=== PATIENT | male | born 1980 | race Caucasian/White ===

== ENCOUNTER 2019-02-14 19:08 | Inpatient (IN) | payer MEDICAID, OTHER ==
[~2019-02-14] VITALS: Ht 166.6 cm; Wt 73.7 kg
--- NOTE | 2019-02-14 19:20 | NUR ---
PT JAIR FROM [facility] C/O RUQ PAIN X4 DAYS. +NAUSEA, +VOMITTING, +BLACK STOOL, -FEVER. PT AOX4. PT ON MONITOR IN BED 3. WILL CONTINUE TO MONITOR.
--- NOTE | 2019-02-14 19:50 | NUR ---
BLOOD DRAWN AND GIVEN TO LAB
[2019-02-14] MEDS ORDERED: PANTOPRAZOLE 40 MG VIAL ONE (19:54)
[2019-02-14] MEDS ORDERED: ONDANSETRON HCL/PF 4 MG/2 ML VIAL ONE (19:54)
[2019-02-14 19:58] LABS: BASOPHILS % (AUTO) 0.8 % (0.0-2.0); EOSINOPHILS % (AUTO) 1.3 % (0.0-6.0); HEMATOCRIT 32 % (39-51); HEMOGLOBIN 9.9 g/dL (13.5-17.5); LYMPHOCYTES # (AUTO) 1.4 /CMM (0.8-4.8); LYMPHOCYTES % (AUTO) 32.3 % (20.0-44.0); MEAN CORPUSCULAR HGB CONC 31 g/dl (31.0-36.0); MEAN CORPUSCULAR VOLUME 70 fL (80-96); MONOCYTES # (AUTO) 0.4 /CMM (0.1-1.30); MONOCYTES % (AUTO) 9.3 % (2.0-12.0); NEUTROPHILS # (AUTO) 2.5 /CMM (1.8-8.9); NEUTROPHILS % (AUTO) 56.3 % (43.0-81.0); PLATELET COUNT (AUTO) 275 /CMM (150-450); RED BLOOD CELL COUNT(AUTO) 4.55 MIL/uL (4.5-6.0); WHITE BLOOD COUNT (AUTO) 4.4 K/uL (4.3-11.0)
[2019-02-14] MEDS ORDERED: ONDANSETRON HCL/PF 4 MG/2 ML VIAL IVP ONE (20:00)
[2019-02-14] MEDS ORDERED: IV NS 0.9% 1,000 ML BAG IV ONE (20:00)
[2019-02-14] MEDS ORDERED: PANTOPRAZOLE 40 MG VIAL IV ONE (20:00)
--- NOTE | 2019-02-14 20:00 | NUR ---
BLOOD OCCULT SAMPLE COLLECTED BY XIAO WEINSTEIN AND SENT TO LAB
[2019-02-14 20:07] LABS: OCCULT BLOOD STOOL POSITIVE (NEGATIVE)
[2019-02-14 20:07] LABS: CALCIUM, SERUM 9.1 mg/dL (8.5-10.1); POTASSIUM 4.6 mmol/L (3.5-5.1)
[2019-02-14 20:10] LABS: ALBUMIN 3.5 g/dL (3.4-5.0); BILIRUBIN,DIRECT 0.1 mg/dL (0.0-0.2); BILIRUBIN,TOTAL 0.2 mg/dL (0.2-1.0); TOTAL PROTEIN, SERUM 6.9 g/dL (6.4-8.2)
--- NOTE | 2019-02-14 20:58 | NUR ---
CALLED [facility], PAGED DR SUAREZ
--- NOTE | 2019-02-14 21:19 | NUR ---
CALLED NURSING SUP FOR TELE BED
--- NOTE | 2019-02-14 22:13 | NUR ---
GAVE REPORT TO SOURAV TAI FOR RICARDO
[2019-02-14] MEDS ORDERED: MORPHINE SULFATE INJ 2 MG/ML DISP.SYRIN IV PRN (22:30)
[2019-02-14] MEDS ORDERED: ONDANSETRON HCL/PF 4 MG/2 ML VIAL IVP PRN (22:30)
[2019-02-14] MEDS ORDERED: ACETAMINOPHEN 650 MG/SUPP.RECT RC PRN (22:30)
[2019-02-14] MEDS ORDERED: IV D5/ 0.9% NACL 1,000 ML IV PRN (22:30)
--- NOTE | 2019-02-14 22:41 | NUR ---
TELE/RN NOTES RECEIVED PT. FROM ER VIA [facility]. PT. IS AWAKE, ALERT AND ORIENTED X4. BREATHING EVEN AND UNLABORED ON ROOM AIR. NO SOB, RESPIRATORY DISTRESS OR COMPLAINTS OF PAIN NOTED AT THIS TIME. ORIENTED PT. TO ROOM. PT. WITH RIGHT AC 18 GAUGE IV SALINE LOCK PRESENT, PATENT AND INTACT. PLACED EXTERNAL CERTIFIED CORPORATE TRAVEL EXECUTIVE ON PT. CURRENT RHYTHM = SINUS RHYTHM HR 63. BED LOCKED AND IN LOWEST POSITION, SIDE RAILS UP X2, CALL LIGHT WITHIN REACH, WILL CONTINUE TO MONITOR.
--- NOTE | 2019-02-14 23:18 | NUR ---
MS/RN NOTES SPOKE WITH [facility] BUS PERSON DISHWASHER DR. SUAREZ AND NOTIFIED HIM PT. IS REQUESTING ICE CHIPS. PER DR. SUAREZ OKAY FOR PT. TO HAVE ICE CHIPS. WILL CARRY OUT ORDER. WILL CONTINUE TO MONITOR.
[2019-02-14 23:59] VITALS: BP 116/70
[2019-02-15] MEDS: PANTOPRAZOLE 40 MG VIAL IV SCH ×2 (00:21→11:09)
[2019-02-15 06:16] LABS: BASOPHILS % (AUTO) 0.8 % (0.0-2.0); HEMATOCRIT 30 % (39-51); HEMOGLOBIN 9.1 g/dL (13.5-17.5); LYMPHOCYTES # (AUTO) 1.3 /CMM (0.8-4.8); LYMPHOCYTES % (AUTO) 36.8 % (20.0-44.0); MEAN CORPUSCULAR HGB CONC 31 g/dl (31.0-36.0); MEAN CORPUSCULAR VOLUME 71 fL (80-96); MONOCYTES # (AUTO) 0.3 /CMM (0.1-1.30); MONOCYTES % (AUTO) 8.9 % (2.0-12.0); NEUTROPHILS # (AUTO) 1.9 /CMM (1.8-8.9); NEUTROPHILS % (AUTO) 52.5 % (43.0-81.0); PLATELET COUNT (AUTO) 237 /CMM (150-450); WHITE BLOOD COUNT (AUTO) 3.6 K/uL (4.3-11.0)
[2019-02-15 06:31] LABS: BILIRUBIN,TOTAL 0.2 mg/dL (0.2-1.0); CALCIUM, SERUM 8.2 mg/dL (8.5-10.1); POTASSIUM 4.8 mmol/L (3.5-5.1)
--- NOTE | 2019-02-15 06:50 | NUR ---
TELE/RN NOTES PT. IS LYING IN BED RESTING. BREATHING EVEN AND UNLABORED ON ROOM AIR. NO SOB, RESPIRATORY DISTRESS OR COMPLAINTS OF PAIN NOTED AT THIS TIME. PT. WITH EXTERNAL MANAGER TERMINAL PRESENT AND INTACT. CURRENT RHYTHM = SINUS RHYTHM HR 68. PT. WITH RIGHT AC 18 GAUGE PERIPHERAL IV PRESENT, PATENT AND INTACT ADMINISTERING TO PT. D5NS @ 70MLS/HR. ALL PT. NEEDS MET. BED LOCKED AND IN LOWEST POSITION, SIDE RAILS UP X2, CALL LIGHT WITHIN REACH, WILL ENDORSE TO DAYSHIFT NURSE FOR CONTINUITY OF CARE.
[2019-02-15] MEDS ORDERED: CLON0.1T PO (07:34)
[2019-02-15] MEDS ORDERED: LACT-58 PO (07:34)
[2019-02-15] MEDS ORDERED: MULT-24 PO (07:34)
[2019-02-15] MEDS ORDERED: GABA-534 PO (07:34)
[2019-02-15] MEDS ORDERED: PROP20TA7 PO (07:34)
[2019-02-15] MEDS ORDERED: OMEP20CA11 PO (07:34)
[2019-02-15] MEDS ORDERED: PHEN30TA40 PO (07:34)
[2019-02-15] MEDS ORDERED: THIA100T88 PO (07:34)
[2019-02-15] MEDS ORDERED: FOLI1TAB16 PO (07:34)
[2019-02-15 08:00] VITALS: BP_SYST 120; BP_DIAS 72; BP_DIAS 76
[2019-02-15 08:11] LABS: BAND % (MANUAL) 1 % (0.0-5.0); EOSINOPHILS % (MANUAL) 2 % (0-4); LYMPHOCYTES % (MANUAL) 34 % (16-48); MONOCYTES % (MANUAL) 9 % (0-11.0); NEUTROPHILS % (MANUAL) 54 (42-76)
[2019-02-15 08:51] LABS: HEMOGLOBIN 9.4 g/dL (13.5-17.5)
--- NOTE | 2019-02-15 10:29 | NUR ---
Social service consult requested by Dr. Stallings for homelessness. Pt. is a 38 year old male who was admitted to [facility] for GI Bleed. SW met with the pt. bedside. Pt. is alert and oriented x 4. Pt. has tattoos over both his arms and chest. Pt. is cooperative and pleasant with SW during the assessment. Pt. states he is currently in a detox program at [facility] located at [address] [place] [address] in [place]. Pt. has been in [facility] for the past 4 days. Pt. wants to be discharged back to the program once medically cleared. Pt. has been homeless for the past 2 years. Pt. stated he has been using crack cocaine for the past 2 years since his homelessness. Pt. was also in another program called " [facility]" in [facility] a year and a half ago. Pt. has a and three children. Pt's allows the pt. to see his children when he wants to. Pt. seems to have insight on his drug use and the affects of it. Pt. stated he took his for granted for 20 years and understands why she asked him to leave. Pt. 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 Pt. states "I am waiting to get clean from my drug use and my chemical processing supervisor is expecting me to come back." SENAIT updated ZENOBIA Quijano with aforementioned information. Pt. will require a TAP card to get back to his rehab program. Homeless patient waiver form and homeless resources have been placed in pt's chart for him to sign and accept the resources upon discharge. SW is available, if needed.
--- NOTE | 2019-02-15 11:00 | NUR ---
Patient seen by . Patient refused EGD. Per advance the diet as tolerated . No other orders
--- NOTE | 2019-02-15 12:02 | NUR ---
patient tolerated full liquid diet well. No pain , nausea or vomiting
--- NOTE | 2019-02-15 13:40 | NUR ---
Patient cleared for D/C by MD. Patient alert and oriented x4 .Breathing unlabored and even on room air, VS are stable and within base line. All needs attended, shoes provided; community resources provided as well as tapcard. Patient will go back to detox program at [facility] located at [address] [place] [address], in [place]. D/C instructions, education provided.Patient verbalized understanding. Patient sighed all d/c papers including homeless waiver form. Patient has no belongings except his own clothes. IV assess removed; ID wrist band removed. PAtient safely transferred to the [facility] accompanied by FUEL CELL ASSEMBLER.
== END 2019-02-15 14:00 | disposition home or self-care (01) | DRG 253 ==
LOC: ER 19:10 → TELE 22:03
PROVIDERS: ADMIT Internal Medicine; ATTEND Student in an Organized Health Care Education/Training Program
DX: K92.2 Gastrointestinal hemorrhage, unspecified (principal); E44.0 Moderate protein-calorie malnutrition; D64.9 Anemia, unspecified; F14.10 Cocaine abuse, uncomplicated; F17.210 Nicotine dependence, cigarettes, uncomplicated; F12.90 Cannabis use, unspecified, uncomplicated; G47.30 Sleep apnea, unspecified; Z87.11 Personal history of peptic ulcer disease; Z88.6 Allergy status to analgesic agent; Z59.0 Homelessness
CPT/HCPCS: 36415; 80048-TC; 80053-TC; 80076-TC; 82272-TC; 83540-TC; 83690-TC; 83735-TC; 84100-TC; 85025-TC; 85027-TC; 87081-TC; C9113; G0378; J2405; J7030; J7042

== ENCOUNTER 2022-10-06 16:54 | Emergency (ER) | payer MEDICAID, OTHER ==
[~2022-10-06] VITALS: Ht 167.6 cm; Wt 80.7 kg
[~2022-10-06 16:54] MED LIST: CLON0.1T PO; FOLI1TAB16 PO; GABA-534 PO; LACT-58 PO; MULT-24 PO; OMEP20CA15 PO; PHEN30TA40 PO; PROP20TA7 PO; THIA100T88 PO
--- NOTE | 2022-10-06 17:11 | NUR ---
[id number] AND [id number] FROM [facility] FOR OVERDOSE OF UNKNOWN SUBSTANCE. 2MG NARCAN NASAL SPRAY GIVEN ON SCENE.
--- NOTE | 2022-10-06 17:16 | NUR ---
BLOOD / URINE SAMPLE OBTAINED SENT TO LAB
--- NOTE | 2022-10-06 17:18 | NUR ---
IV LINE 18 G LEFT AC
[2022-10-06] MEDS ORDERED: NALO4SPR BNOSTRILS (19:17)
--- NOTE | 2022-10-06 20:30 | NUR ---
PATIENT AWAKE, ALERT, AND AMBULATORY.
[2022-10-06 20:49] VITALS: BP 139/74; TEMP 98.1
--- NOTE | 2022-10-06 20:49 | NUR ---
IV removed. Catheter intact and site benign. Pressure and 4x4 applied to site. No bleeding noted.Patient discharged to home in stable condition. Written and verbal after care instructions given. Patient verbalizes understanding of instruction.
== END 2022-10-06 20:50 ==
LOC: ER 17:20
DX: T40.601A Poisoning by unspecified narcotics, accidental (unintentional), initial encounter (principal); I10 Essential (primary) hypertension; Z60.2 Problems related to living alone; Z79.899 Other long term (current) drug therapy; Z88.1 Allergy status to other antibiotic agents; Y92.89 Other specified places as the place of occurrence of the external cause